=== PATIENT | male | born 1965 | race Caucasian/White ===

== ENCOUNTER → 2017-05-21 | Outpatient (CLI) | payer BC ==
--- NOTE | ~2017-05-21 | EKG ---
PATIENT: CARLIN ZAMORA UNIT #: [id number] Ventricular Rate: 57 BPM Atrial Rate: 57 BPM P-R Interval: 144 ms QRS Duration: 92 ms Q-T Interval: 402 ms QTC Calculation(Bezet): 391 ms P Line [place]: 56 degrees Calculated R Line [place]: 46 degrees Calculated T Line [place]: 45 degrees Diagnosis Line: Sinus bradycardia Diagnosis Line: Otherwise normal ECG Diagnosis Line: Diagnosis Line: Confirmed by FELICIANO JAMA MD ([id number]) on Diagnosis Line: 05/23/2017 9:42:08 AM INTERPRETING MD: WILEY GLYNN
[2017-05-21 15:35] LABS: HEMATOCRIT 39.2 % (38.0-50.0); MEAN CELL VOLUME 85.8 FL (83-96); MEAN CORPUSCULAR HEMOGLOBIN 28.5 PG (28-34); MEAN CORPUSCULAR HGB CONC 33.3 g/dL (30-36); MEAN PLATELET VOLUME 7.5 FL (6.5-11.5); RED BLOOD COUNT 4.57 X10e (3.90-5.60); RED CELL DISTRIBUTION WIDTH 13.4 % (11.0-15.5); WHITE BLOOD COUNT 6.8 X10e3 (4.0-10.5)
== END | disposition home or self-care (01) ==
LOC: CLAB 15:11 → CEKG 15:11
PROVIDERS: Orthopaedic Surgery Sports Medicine
DX: Z01.818 Encounter for other preprocedural examination (principal); M23.204 Derangement of unspecified medial meniscus due to old tear or injury, left knee
CPT/HCPCS: 36415; 85027; 93005